=== PATIENT | female | born 1970 | race Caucasian/White ===

== ENCOUNTER 2017-08-20 14:21 | Emergency (ER) | payer BC ==
[2017-08-20 14:40] VITALS: BP 161/86; PULSE 96; O2SAT 95
[2017-08-20] MEDS ORDERED: XYLOCAINE 1% HCL 20 ML MDV IJ ONE (14:53)
[2017-08-20] MEDS ORDERED: Adacel Vial IM ONE ×2 (14:53→14:59)
--- NOTE | 2017-08-20 14:53 | ERPHSYRPT ---
- History of Present Illness Time Seen by Provider: 08/20/17 14:48 Source: patient, family Exam Limitations: no limitations Patient Subjective Stated Complaint: left foot toothpick stuck in left sole Triage Nursing Assessment: foreign body can be seen on outer aspect of left base of foot, TTP Physician History: The patient is a 47-year-old female with her family complaining that she accidentally jammed a toothpick into her right foot walking without shoes on the floor. This happened about an hour ago. She tried pulling it out but it broke off. Tetanus vaccination is greater than 5 years. Her past medical history is significant for diabetes, hypertension, and high cholesterol. Method of Injury: other Occurred: just prior to arrival Quality: aching, sharpness Severity of Pain-Max: mild Severity of Pain-Current: mild Lower Extremities Pain: foot: left Modifying Factors: Improves With: nothing Associated Symptoms: none Allergies/Adverse Reactions: erythromycin base Allergy (Verified 08/20/17 14:31) Sulfa (Sulfonamide Antibiotics) Allergy (Verified 08/20/17 14:31) Home Medications: Atorvastatin Calcium 08/20/17 [History] Dicyclomine HCl 20 mg [Bentyl 20 mg] 08/20/17 [History] Fenofibrate [Fenoglide] 08/20/17 [History] Metoprolol Tartrate [Lopressor] 08/20/17 [History] Sitagliptin Phosphate [Januvia] 08/20/17 [History] Hx Tetanus, Diphtheria Vaccination/Date Given: Yes Hx Influenza Vaccination/Date Given: No Immunizations Up to Date: Yes - Review of Systems Constitutional: No Fever, No Chills Eyes: No Symptoms Ears, Nose, & Throat: No Symptoms Respiratory: No Cough, No Dyspnea Cardiac: No Chest Pain, No Edema, No Syncope Abdominal/Gastrointestinal: No Abdominal Pain, No Nausea, No Vomiting, No Diarrhea Genitourinary Symptoms: No Dysuria Musculoskeletal: No Back Pain, No Neck Pain Skin: Other (Foreign body) Neurological: No Dizziness, No Focal Weakness, No Sensory Changes Psychological: No Symptoms Endocrine: No Symptoms Hematologic/Lymphatic: No Symptoms Immunological/Allergic: No Symptoms All Other Systems: Reviewed and Negative - Past Medical History Neurological History: No Pertinent History ENT History: No Pertinent History Cardiac History: High Cholesterol, Hypertension Respiratory History: No Pertinent History Endocrine Medical History: Diabetes Type II Musculoskeletal History: No Pertinent History GI Medical History: Other History: No Pertinent History Psycho-Social History: No Pertinent History Female Reproductive Disorders: No Pertinent History Other Medical History: IBS - Past Surgical History Past Surgical History: Yes Female Surgical History: Hysterectomy Other Surgical History: Foot surgery - Social History Smoking Status: Never smoker Drug Use: none - Female History Hx Last Menstrual Period: hysterectomy Hx Now: No - Nursing Vital Signs Nursing Vital Signs: Initial Vital Signs Temperature 98.7 F 08/20/17 14:34 Pulse Rate 96 H 08/20/17 14:34 Respiratory Rate 18 08/20/17 14:34 Blood Pressure 161/86 08/20/17 14:34 O2 Sat by Pulse Oximetry 95 08/20/17 14:34 Pain Scale Pain Intensity 4 - Physical Exam General Appearance: alert Eyes, Ears, Nose, Throat Exam: moist mucous membranes Neck Exam: non-tender, supple Cardiovascular/Respiratory Exam: chest non-tender, normal breath sounds, regular rate/rhythm, no respiratory distress Gastrointestinal/Abdominal Exam: non-tender, guarding Back Exam: normal inspection, No vertebral tenderness Hips Exam: bilateral: non-tender, normal inspection Legs Exam: bilateral leg: non-tender, normal inspection Knees Exam: bilateral knee: non-tender, normal inspection Ankle Exam: bilateral ankle: non-tender, normal inspection Foot Exam: right foot: soft tissue tenderness, other (foreign body), left foot: non-tender, normal inspection Neuro/Tendon Exam: normal sensation, normal motor functions Mental Status Exam: alert, oriented x 3, cooperative Skin Exam: normal color, warm, dry SpO2 Interpretation: normal SpO2: 95 Oxygen Delivery: Room Air Ordered Tests: Medication Summary Discontinued Medications Generic Name Dose Route Start Last Admin Trade Name Freq PRN Reason Stop Dose Admin Diphtheria/Tetanus/Acell Pertussis 0.5 ml 08/20/17 14:53 08/20/17 14:57 Adacel Vial IM 08/20/17 14:54 0.5 ml .ONCE ONE Administration Diphtheria/Tetanus/Acell Pertussis Confirm 08/20/17 14:59 Adacel Vial Administered 08/20/17 15:00 Dose 0.5 ml IM .STK-MED ONE Lidocaine HCl 10 ml 08/20/17 14:53 08/20/17 15:00 Xylocaine 1% Hcl 20 Ml Mdv IJ 08/20/17 14:54 5 ml STAT ONE Administration Lidocaine HCl Confirm 08/20/17 14:56 Xylocaine 1% Hcl 20 Ml Mdv Administered 08/20/17 14:57 Dose 5 ml .ROUTE .STK-MED ONE - Progress Progress Note: 08/20/17 15:19 After the area on the lateral palmar side of the right foot was anesthetized with 1% lidocaine 7 mL, Betadine solution was applied. A small incision was made over the foreign body within the 11 blade and the embedded toothpick was removed in its entirety. Patient tolerated the procedure well. Hemostasis was achieved. Counseled pt/family regarding: diagnosis - Departure Time of Disposition: 15:19 Departure Disposition: Home Clinical Impression: Foreign body (FB) in soft tissue Condition: Stable Critical Care Time: No Referrals: DONNIE STATON [Primary Care Provider] - Additional Instructions: You had a piece of toothpick embedded in the sole of your right foot. It was successfully extracted. You were also given a tetanus vaccination. Keep the wound clean for the next several days. Follow-up as needed.
[2017-08-20] MEDS ORDERED: XYLOCAINE 1% HCL 20 ML MDV ONE (14:56)
== END 2017-08-20 15:49 | disposition home or self-care (01) ==
LOC: ED 14:21
PROC: 0JCQ0ZZ Extirpation of Matter from Right Foot Subcutaneous Tissue and Fascia, Open Approach (ICD-10-PCS; principal; 2017-08-20)
DX: M79.5 Residual foreign body in soft tissue (principal)
CPT/HCPCS: 10120; 90471; 90715; 99283